=== PATIENT | female | born 1930 | race Two or more races ===

== ENCOUNTER 2018-08-08 08:09 | Outpatient (CLI) | payer OTHER | END 2018-08-08 08:30 | disposition home or self-care (01) | LOC: LAB 08:09 | DX: R41.89 Other symptoms and signs involving cognitive functions and awareness (principal); R41.3 Other amnesia; E03.8 Other specified hypothyroidism; F03.90 Unspecified dementia, unspecified severity, without behavioral disturbance, psychotic disturbance, mood disturbance, and anxiety; D50.0 Iron deficiency anemia secondary to blood loss (chronic); E11.69 Type 2 diabetes mellitus with other specified complication; E78.00 Pure hypercholesterolemia, unspecified; N39.0 Urinary tract infection, site not specified; R10.9 Unspecified abdominal pain; E55.9 Vitamin D deficiency, unspecified; E53.8 Deficiency of other specified B group vitamins ==

== ENCOUNTER 2018-08-08 11:57 | Outpatient (CLI) | payer OTHER | END 2018-08-08 14:24 | disposition home or self-care (01) | LOC: RAD 11:57 | DX: J44.1 Chronic obstructive pulmonary disease with (acute) exacerbation (principal) ==

== ENCOUNTER 2018-08-14 08:44 | Outpatient (CLI) | payer OTHER | END 2018-08-14 12:26 | disposition home or self-care (01) | LOC: LAB 08:44 | DX: D50.0 Iron deficiency anemia secondary to blood loss (chronic) (principal); E11.69 Type 2 diabetes mellitus with other specified complication; E78.00 Pure hypercholesterolemia, unspecified; E03.8 Other specified hypothyroidism; N39.0 Urinary tract infection, site not specified; R10.9 Unspecified abdominal pain; E55.9 Vitamin D deficiency, unspecified; E53.8 Deficiency of other specified B group vitamins ==

== ENCOUNTER 2018-08-17 15:49 | Outpatient (CLI) | payer OTHER | END 2018-08-17 15:52 | disposition home or self-care (01) | LOC: LAB 15:49 | DX: D50.0 Iron deficiency anemia secondary to blood loss (chronic) (principal); D51.0 Vitamin B12 deficiency anemia due to intrinsic factor deficiency; M15.0 Primary generalized (osteo)arthritis ==

== ENCOUNTER 2018-08-21 08:24 | Outpatient (CLI) | payer OTHER | END 2018-08-21 08:29 | disposition home or self-care (01) | LOC: MRI 08:24 | DX: F09 Unspecified mental disorder due to known physiological condition (principal); F03.90 Unspecified dementia, unspecified severity, without behavioral disturbance, psychotic disturbance, mood disturbance, and anxiety | CPT/HCPCS: 70551 ==

== ENCOUNTER 2018-09-19 03:58 | Emergency (ER) | payer OTHER ==
[~2018-09-19] VITALS: Ht 149.9 cm; Wt 53.5 kg
[2018-09-19] MEDS ORDERED: ONDANSETRON ODT4 MG SL (07:52)
[2018-09-19] MEDS ORDERED: PEPCID AC20 MG PO (07:52)
== END 2018-09-19 08:26 | disposition home or self-care (01) ==
LOC: ER 03:58
DX: K29.60 Other gastritis without bleeding (principal); G30.8 Other Alzheimer's disease; F02.80 Dementia in other diseases classified elsewhere, unspecified severity, without behavioral disturbance, psychotic disturbance, mood disturbance, and anxiety

== ENCOUNTER 2018-09-21 19:10 | Inpatient (IN) | payer OTHER ==
[~2018-09-21] VITALS: Ht 121.9 cm; Wt 140.0 kg
[~2018-09-21 19:10] MED LIST: ONDANSETRON ODT4 MG SL; PEPCID AC20 MG PO
--- NOTE | 2018-09-21 19:16 | NUR ---
SE RECIBE PTE EN AMBULANCIA ALERTA Y ORIENTADA EN PERSONA, DESORIENTADA EN TIEMPO Y LUGAR. FAMILIAR REFIERE PTE PADECE DE ALZHEIMERS, HIPERTENCION Y GASTRITIS Y QUE VIENE POR DOLOR ABDOMINAL. SE CHARY S/V Y SE UBICA PTE EN CAMA #9.
--- NOTE | 2018-09-22 00:08 | NUR ---
SE RECIBE PTE FEMENINA DE 87 YRS ALERTA CONCIENTE Y TRANQUILA EN COMOPANIA DE FAMILIAR. PTE ES EVALUADA POR EL , DUENO QUIEN ORDENA TRATAMIENTO LA CUIAL SE EJECUTA POR MS.GALAN DEL CID . SE MANTIENE BAJO OBSERVACION POR CAMBIOS.
--- NOTE | 2018-09-22 08:22 | NUR ---
SE RECIBE DE TURNO ANTERIOR. PACIENTE FEMENINA. ALERTA Y ORIENTADA SOLAMENTE EN PERSONA. SE OBSERVA CON BUEN PATRON RESPIRATORIO. PIEL TIBIA AL TACTO. CANALIZACION PATENTE, ANNY DE EDEMA Y/O ENROJECIMIENTO RECIBIENDO 0.9 NSS @150 ML/HR. PACIENTE EN ESPERA DE CONSULTA CON DR BRAVO.
--- NOTE | 2018-09-22 15:14 | NUR ---
SE RECIBE PTE EL CUAL SE ENCUENTRA CON AREA DE VENOPUNCION ANNY DE EDEMA Y ENROJECIMIENTO. PTE SE ENCUENTRA EN ESPERA POR ESTUDIOS A REALIZAR Y CONSULTA CON DR BRAVO.
== END 2018-10-02 15:40 | DRG 351 ==
LOC: ER 19:10 → MEDI 09-22 15:48
PROVIDERS: Surgery; ADMIT Internal Medicine
PROC: 0DH67UZ Insertion of Feeding Device into Stomach, Via Natural or Artificial Opening (ICD-10-PCS; 2018-09-22)
PROC: BW21ZZZ Computerized Tomography (CT Scan) of Abdomen and Pelvis (ICD-10-PCS; 2018-09-23)
PROC: 3E0G76Z Introduction of Nutritional Substance into Upper GI, Via Natural or Artificial Opening (ICD-10-PCS; 2018-09-23)
PROC: B246ZZZ Ultrasonography of Right and Left Heart (ICD-10-PCS; 2018-09-23)
PROC: 0T9B70Z Drainage of Bladder with Drainage Device, Via Natural or Artificial Opening (ICD-10-PCS; 2018-09-24)
PROC: 0YU50JZ Supplement Right Inguinal Region with Synthetic Substitute, Open Approach (ICD-10-PCS; principal; 2018-09-24 09:00)
PROC: 02HV33Z Insertion of Infusion Device into Superior Vena Cava, Percutaneous Approach (ICD-10-PCS; 2018-09-25)
DX: K40.30 Unilateral inguinal hernia, with obstruction, without gangrene, not specified as recurrent (principal); K56.690 Other partial intestinal obstruction; J90 Pleural effusion, not elsewhere classified; E44.0 Moderate protein-calorie malnutrition; G30.0 Alzheimer's disease with early onset; F02.80 Dementia in other diseases classified elsewhere, unspecified severity, without behavioral disturbance, psychotic disturbance, mood disturbance, and anxiety; E86.0 Dehydration; E87.8 Other disorders of electrolyte and fluid balance, not elsewhere classified; E78.2 Mixed hyperlipidemia; D63.8 Anemia in other chronic diseases classified elsewhere; K29.00 Acute gastritis without bleeding; N28.1 Cyst of kidney, acquired; K57.30 Diverticulosis of large intestine without perforation or abscess without bleeding; E87.6 Hypokalemia; I35.1 Nonrheumatic aortic (valve) insufficiency; R31.0 Gross hematuria; I10 Essential (primary) hypertension

== ENCOUNTER 2018-10-10 03:42 | Emergency (ER) | payer OTHER ==
[~2018-10-10] VITALS: Ht 154.9 cm; Wt 61.2 kg
[2018-10-10] MEDS ORDERED: ARICEPT5 MG (03:48)
[2018-10-10] MEDS ORDERED: METOPROLOL ER-1 EAC1 (03:48)
== END 2018-10-10 14:13 | disposition home or self-care (01) ==
LOC: ER 03:42
DX: K56.690 Other partial intestinal obstruction (principal); K57.30 Diverticulosis of large intestine without perforation or abscess without bleeding; R10.84 Generalized abdominal pain; G30.8 Other Alzheimer's disease; F02.80 Dementia in other diseases classified elsewhere, unspecified severity, without behavioral disturbance, psychotic disturbance, mood disturbance, and anxiety; N39.0 Urinary tract infection, site not specified; B96.1 Klebsiella pneumoniae [K. pneumoniae] as the cause of diseases classified elsewhere

== ENCOUNTER 2018-11-02 07:20 | Outpatient (CLI) | payer OTHER ==
[~2018-11-02 07:20] MED LIST changes: +ARICEPT5 MG; +METOPROLOL ER-1 EAC1
== END 2018-11-02 07:36 | disposition home or self-care (01) ==
LOC: NUCLEAR 07:20
DX: K81.1 Chronic cholecystitis (principal)
CPT/HCPCS: 78227; A9537

== ENCOUNTER 2018-12-28 08:17 | Outpatient (CLI) | payer OTHER | END 2018-12-28 08:22 | disposition home or self-care (01) | LOC: LAB 08:17 | DX: G30.1 Alzheimer's disease with late onset (principal) ==

== ENCOUNTER 2019-06-02 09:15 | Outpatient (CLI) | payer OTHER | END 2019-06-02 09:35 | disposition home or self-care (01) | LOC: LAB 09:15 | DX: G30.1 Alzheimer's disease with late onset (principal); E78.2 Mixed hyperlipidemia ==

== ENCOUNTER 2019-06-26 09:34 | Outpatient (CLI) | payer OTHER | END 2019-06-26 09:51 | disposition home or self-care (01) | LOC: LAB 09:34 | DX: D64.89 Other specified anemias (principal); I10 Essential (primary) hypertension; E11.9 Type 2 diabetes mellitus without complications; E78.00 Pure hypercholesterolemia, unspecified; N39.0 Urinary tract infection, site not specified; E03.8 Other specified hypothyroidism; E55.9 Vitamin D deficiency, unspecified; R19.5 Other fecal abnormalities ==